=== PATIENT | male | born 1965 | race African-American/Black ===

== ENCOUNTER 2016-09-06 23:41 | Emergency (ER) | payer MEDICAID ==
[2016-09-06 23:54] VITALS: RESP 16; TEMP 97.7; O2SAT 94
[2016-09-07] MEDS ORDERED: NICOTINE 21 MG/24 HR PATCH TD ONE (01:17)
[2016-09-07 01:56] LABS: % IMMATURE GRANULYOCYTES 0.2 % (0.0-1.1); ABSOLUTE IMMATURE GRANULOCYTES 0.02 10^3/uL (0.00-0.10); ADD DIFF? NO; ADD MORPH? NO; ADD SCAN? NO; ATYPICAL LYMPHOCYTE FLAG 20 (0-99); FRAGMENT RBC FLAG 0 (0-99); HEMOGLOBIN 17.5 g/dL (13.7-17.5); LEFT SHIFT FLG 0 (0-99); LIPEMIA HEMOLYSIS FLAG 80 (0-99); MEAN CELL HEMOGLOBIN 28.3 pg (27.9-34.1); MEAN CELL HEMOGLOBIN CONCENTR. 33.7 g/dL (32.4-36.7); MEAN PLATELET VOLUME 10.2 fL (8.7-11.7); PLATELET CLUMPS FLAG 10 (0-99); PLATELET COUNT 233 10^3/uL (150-400); RED BLOOD CELL COUNT 6.19 10^6/uL (4.40-6.38); RED CELL DISTRIBUTION WIDTH 15.3 % (11.5-15.2)
[2016-09-07 02:09] LABS: ANION GAP 16 mEq/L (8-16); CALCIUM 10.3 mg/dL (8.5-10.4); CARBON DIOXIDE 20 mEq/l (22-31); CHLORIDE 103 mEq/L (97-110); CREATININE 0.9 mg/dL (0.7-1.3); ETHANOL SERUM 142 mg/dL (0-10); GLOMERULAR FILTRATION RATE > 60; GLUCOSE 128 mg/dL (70-100); POTASSIUM 4.6 mEq/L (3.5-5.2); SODIUM 139 mEq/L (134-144)
--- NOTE | 2016-09-07 06:31 | EDPHY ---
H & P Stated Complaint: m1 hold Time Seen by Provider: 09/07/16 01:06 HPI/ROS: HPI The patient presents on an M1 hold that was placed by police because of concern for suicidality. Apparently, the patient was drinking alcohol tonight, and then got into an altercation with his girlfriend. He said she was yelling at her and this made him feel badly about himself. He said he began to feel suicidal and said that he would stab himself with a knife when talking with police. He says he has a remote history of depression that has not been on medications in several years. He denies any other complaints. REVIEW OF SYSTEMS Constitutional: No fever, no chills. Eyes: No discharge. ENT: No sore throat. Cardiovascular: No chest pain, no palpitations. Respiratory: No cough, no shortness of breath. Gastrointestinal: No abdominal pain, no vomiting. Genitourinary: No hematuria. Musculoskeletal: No back pain. Skin: No rashes. Neurological: No headache. 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, coaches football PHYSICAL General Appearance: Alert, no distress Eyes: Pupils equal and round no pallor or injection ENT, Mouth: Mucous membranes moist Respiratory: There are no retractions, lungs are clear to auscultation Cardiovascular: Regular rate and rhythm Gastrointestinal: Abdomen is soft and non-tender, no masses, bowel sounds normal Neurological: A&O, moves all extremities Skin: Warm and dry, no rashes Musculoskeletal: Neck is supple non tender Extremities: symmetrical, full range of motion Psychiatric: Patient is oriented X 3, there is no agitation Source: Patient, EMS - Personal History Current Tetanus Diphtheria and Acellular Pertussis (TDAP): Yes - Medical/Surgical History Hx Asthma: No Hx Chronic Respiratory Disease: No Hx Diabetes: No Hx Cardiac Disease: No Hx Renal Disease: No Hx Cirrhosis: No Hx Alcoholism: No Other PMH: legally blind- glaucoma - Social History Smoking Status: Light smoker Constitutional: Initial Vital Signs Temperature (C) 36.5 C 09/06/16 23:50 Heart Rate 107 H 09/06/16 23:50 Respiratory Rate 16 09/06/16 23:50 Blood Pressure 101/78 09/06/16 23:50 O2 Sat (%) 94 09/06/16 23:50 O2 Delivery Mode Room Air Allergies/Adverse Reactions: No Known Allergies Allergy (Unverified 09/06/16 23:50) Home Medications: Medication Instructions Recorded NK [No Known Home Meds] 09/06/16 Medical Decision Making ED Course/Re-evaluation: The patient was monitored in the emergency room and allowed to sleep. His alcohol level returned elevated, however the remainder of his labs were normal. He eventually sobered clinically and repeat breathalyzer was 0.05. The patient was re-examined, he says that he is no longer feeling suicidal now that he is sober. He says he made the statements after a fight with his girlfriend and now feels remorseful that he did. He is future oriented and goal directed. He would like to be discharged so he can have his planned meeting for his football team. He says he is able to return if he is feeling suicidal at all. I feel this is reasonable. He will be discharged. Differential Diagnosis: This is a 51-year-old man with remote history of depression who presents with suicidal thoughts in the setting of alcohol use. He currently seems quite intoxicated. Differential diagnosis includes alcohol intoxication, suicidal ideation related to depression, polysubstance abuse. - Data Points Laboratory Results: Laboratory Results 09/07/16 01:38 09/07/16 01:38 09/07/16 09/07/16 09/07/16 01:38 01:38 00:05 WBC 10.49 10^3/uL H 10^3/uL (3.80-9.50) RBC 6.19 10^6/uL 10^6/uL (4.40-6.38) Hgb 17.5 g/dL g/dL (13.7-17.5) Hct 52.0 % H % (40.0-51.0) MCV 84.0 fL fL (81.5-99.8) MCH 28.3 pg pg (27.9-34.1) MCHC 33.7 g/dL g/dL (32.4-36.7) RDW 15.3 % H % (11.5-15.2) Plt Count 233 10^3/uL 10^3/uL (150-400) MPV 10.2 fL fL (8.7-11.7) Neut % (Auto) 62.8 % % (39.3-74.2) Lymph % (Auto) 28.3 % % (15.0-45.0) Toombs % (Auto) 6.2 % % (4.5-13.0) Eos % (Auto) 2.1 % % (0.6-7.6) Baso % (Auto) 0.4 % % (0.3-1.7) Nucleat RBC Rel Count 0.0 % % (0.0-0.2) Absolute Neuts (auto) 6.59 10^3/uL H 10^3/uL (1.70-6.50) Absolute Lymphs (auto) 2.97 10^3/uL 10^3/uL (1.00-3.00) Absolute Monos (auto) 0.65 10^3/uL 10^3/uL (0.30-0.80) Absolute Eos (auto) 0.22 10^3/uL 10^3/uL (0.03-0.40) Absolute Basos (auto) 0.04 10^3/uL 10^3/uL (0.02-0.10) Absolute Nucleated RBC 0.00 10^3/uL 10^3/uL (0-0.01) Immature Gran % 0.2 % % (0.0-1.1) Immature Gran # 0.02 10^3/uL 10^3/uL (0.00-0.10) Sodium 139 mEq/L mEq/L (134-144) Potassium 4.6 mEq/L mEq/L (3.5-5.2) Chloride 103 mEq/L mEq/L (97-110) Carbon Dioxide 20 mEq/l L mEq/l (22-31) Anion Gap 16 mEq/L mEq/L (8-16) BUN 14 mg/dL mg/dL (7-23) Creatinine 0.9 mg/dL mg/dL (0.7-1.3) Estimated GFR > 60 Glucose 128 mg/dL H mg/dL (70-100) Calcium 10.3 mg/dL mg/dL (8.5-10.4) Urine Opiates Screen NEGATIVE (NEGATIVE) Urine Barbiturates NEGATIVE (NEGATIVE) Ur Phencyclidine Scrn NEGATIVE (NEGATIVE) Ur Amphetamine Screen NEGATIVE (NEGATIVE) U Benzodiazepines Scrn NEGATIVE (NEGATIVE) Urine Cocaine Screen NEGATIVE (NEGATIVE) U Marijuana (THC) Screen NEGATIVE (NEGATIVE) Ethyl Alcohol 142 mg/dL H mg/dL (0-10) Medications Given: Discontinued Medications Nicotine (Nicoderm Cq) 21 mg TD EDNOW ONE Stop: 09/07/16 01:18 Last Admin: 09/07/16 01:35 Dose: 21 mg Departure - Departure Disposition: Home, Routine, Self-Care Clinical Impression: Alcohol intoxication Condition: Good Instructions: Depression (ED), Alcohol Intoxication (ED) [facility]errals: [facility]] - As per Instructions
[2016-09-07 06:46] VITALS: BP 126/85; PULSE 96
== END 2016-09-07 06:52 | disposition home or self-care (01) ==
DX: F10.129 Alcohol abuse with intoxication, unspecified (principal); F17.200 Nicotine dependence, unspecified, uncomplicated
CPT/HCPCS: 80305; G0480